=== PATIENT | female | born 1975 | race Caucasian/White ===

== ENCOUNTER → 2017-09-26 | Outpatient (CLI) | payer OTHER ==
[~2017-09-26] MED LIST: ALL180 PO; EFFSR150 PO; FLNIN NAE; LRT5 PO
--- NOTE | 2017-09-26 13:07 | DIAGNOSTIC IMAGING REPORT ---
SINUSES WITH BRAIN LAB HISTORY: 42 years-old Female CHRONIC SINUSITIS COMPARISON: None available TECHNIQUE: Multiple axial CT images of the paranasal sinuses were obtained without contrast. A dose lowering technique was used consistent with the principals of RAMOS. FINDINGS: Mastoid air cells and middle ear cavities are clear. There is minimal mucosal thickening of the sphenoid sinuses. The maxillary sinuses are clear. 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 Right-sided Sascha cell measures 8 mm transversely. The bilateral ostiomeatal units, frontal ethmoidal and sphenoethmoidal recesses are patent. No large sinonasal polyps identified. The nasopharynx appears patent. No acute facial bone fracture or dislocation. Imaged cervical spine appears intact. Soft tissues appear unremarkable. The imaged intracranial structures demonstrate no acute abnormality. Orbits are symmetric. IMPRESSION: 1. Only minimal mucosal disease of the sphenoid sinuses with otherwise no significant paranasal sinus disease identified. 2. Small right Sascha cell with patency of the bilateral ostiomeatal units. The above report was generated using voice recognition software. It may contain grammatical, syntax or spelling errors. Electronically signed by: Wesly Cabezas M.D. 09/26/2017 1:06 PM Dictated Date/Time: 09/26/2017 1:01 PM
== END | disposition home or self-care (01) ==
LOC: C.CTS 12:29
PROVIDERS: ATTEND Otolaryngology
DX: J32.2 Chronic ethmoidal sinusitis (principal); J32.0 Chronic maxillary sinusitis